=== PATIENT | female | born 1970 ===

== ENCOUNTER 2024-08-04 09:25 | Emergency (ER) | payer SELFPAY ==
[2024-08-04] MEDS: Ondansetron 4 MG/2 ML SDV IVPUSH ONE (10:24)
[2024-08-04] MEDS: Sodium Chloride 0.9% 2,000 ML IV SCH (10:25)
[2024-08-04] MEDS: Take Home: Ondansetron 4 MG Tab.DIS, 5 Tab Pack PO ONE (11:23)
== END 2024-08-04 11:58 | disposition home or self-care (01) ==
LOC: DL.ED 09:25
DX: R11.2 Nausea with vomiting, unspecified (principal)
CPT/HCPCS: 96374; 99283; 99284; J2405; J7030; Q0162